=== PATIENT | female | born 1965 | race Caucasian/White ===

== ENCOUNTER 2020-06-09 07:49 | Day surgery (SDC) | payer MEDICAID, SELFPAY ==
[~2020-06-09] VITALS: Ht 152.4 cm; Wt 90.7 kg
[2020-06-09] MEDS ORDERED: SIMETHICONE 40 MG/0.6 ML ML ONE (08:13)
[2020-06-09] MEDS ORDERED: MEPERIDINE HCL/PF 100 MG/ML AMP ONE (08:14)
[2020-06-09 08:25] VITALS: BP_SYST 110
[2020-06-09] MEDS: MIDAZOLAM HCL 5 MG/5 ML VIAL ONE ×4 (09:50→10:03)
[2020-06-09] MEDS ORDERED: DIPHENHYDRAMINE INJ 50 MG/ML VIAL ONE (10:27)
== END 2020-06-09 09:48 | disposition home or self-care (01) ==
LOC: SMU 07:49 → SDS 07:49
PROVIDERS: ATTEND Internal Medicine Gastroenterology
DX: K62.5 Hemorrhage of anus and rectum (principal); K57.30 Diverticulosis of large intestine without perforation or abscess without bleeding; K64.8 Other hemorrhoids; Z20.828 Contact with and (suspected) exposure to other viral communicable diseases
CPT/HCPCS: 36415; 45378; 87426; 99152; 99153; G0378; J1200; J2175; J2250; U0003